=== PATIENT | male | born 1970 | race Caucasian/White ===

== ENCOUNTER 2019-12-25 07:32 | Outpatient (RCR) | payer MEDICARE, SELFPAY | END 2020-01-07 23:59 | disposition home or self-care (01) | LOC: ANHWOC 07:32 | PROVIDERS: PCP Family Medicine; Visit Provider Family Medicine | DX: E11.622 Type 2 diabetes mellitus with other skin ulcer (principal); L97.909 Non-pressure chronic ulcer of unspecified part of unspecified lower leg with unspecified severity; E11.65 Type 2 diabetes mellitus with hyperglycemia; E66.01 Morbid (severe) obesity due to excess calories | CPT/HCPCS: 99212; A9270; G0463 ==

== ENCOUNTER 2020-02-05 07:21 | Outpatient (RCR) | payer MEDICARE, SELFPAY | END 2020-04-01 08:01 | disposition home or self-care (01) | LOC: ANHWOC 07:21 | PROVIDERS: PCP Family Medicine; Visit Provider Family Medicine | DX: E11.65 Type 2 diabetes mellitus with hyperglycemia (principal); E11.622 Type 2 diabetes mellitus with other skin ulcer; L97.909 Non-pressure chronic ulcer of unspecified part of unspecified lower leg with unspecified severity; E66.01 Morbid (severe) obesity due to excess calories | CPT/HCPCS: 99211; 99212; G0463 ==

== ENCOUNTER 2024-01-25 07:53 | Outpatient (CLI) | payer MEDICARE, SELFPAY ==
[2024-01-25 18:46] LABS: LDL Cholesterol Direct 69 mg/dL
[2024-01-25 18:48] LABS: Alanine Aminotransferase 21 U/L (6-50); Albumin Level 4.1 g/dL (3.5-5.1); Alkaline Phosphatase 62 U/L (38-126); Anion Gap 5 mmol/L (8-16); Aspartate Amino Transferase 42 U/L (17-59); Bilirubin,Total 0.9 mg/dL (0.2-1.3); Blood Urea Nitrogen 15 mg/dL (9-20); Calcium 9.2 mg/dL (8.4-10.2); Carbon Dioxide 28 mmol/L (22-30); Chloride 101 mmol/L (98-107); Cholesterol 101 mg/dL (0-200); Estimated Glomerular Filt Rate > 60; Glucose 110 mg/dL (65-110); HDL Direct 19 mg/dL; Potassium 4.4 mmol/L (3.4-5.0); Sodium 134 mmol/L (137-145); Triglycerides 160 mg/dL (<150); Uric Acid 5.5 mg/dL (3.5-8.5)
[2024-01-25 20:47] LABS: Hemoglobin A1C 6.5 % (<5.7)
== END 2024-01-25 07:54 | disposition home or self-care (01) ==
PROVIDERS: PCP Family Medicine; Visit Provider Family Medicine
DX: M10.9 Gout, unspecified (principal); E11.9 Type 2 diabetes mellitus without complications
CPT/HCPCS: 36415; 80053; 80061; 83036; 84550

== ENCOUNTER 2024-08-04 07:58 | Outpatient (CLI) | payer MEDICARE, SELFPAY ==
[2024-08-04 14:53] LABS: Alanine Aminotransferase 24 U/L (6-50); Albumin Level 4.2 g/dL (3.5-5.1); Alkaline Phosphatase 65 U/L (38-126); Anion Gap 13 mmol/L (4-12); Aspartate Amino Transferase 40 U/L (17-59); Bilirubin,Total 0.8 mg/dL (0.2-1.3); Blood Urea Nitrogen 14 mg/dL (9-20); Carbon Dioxide 25 mmol/L (22-30); Chloride 98 mmol/L (98-107); Cholesterol 112 mg/dL (0-200); Estimated Glomerular Filt Rate > 60; Glucose 156 mg/dL (65-110); HDL Direct 21 mg/dL; Potassium 4.2 mmol/L (3.4-5.0); Sodium 136 mmol/L (137-145); Triglycerides 169 mg/dL (<150); Uric Acid 5.3 mg/dL (3.5-8.5)
[2024-08-04 15:04] LABS: LDL Cholesterol Direct 68 mg/dL
[2024-08-04 15:09] LABS: Microalbumin Urine Random 6.7 mg/L (0-16.7)
[2024-08-04 15:20] LABS: Creatinine Urine 100.7 mg/dL; MALB Creatinine Ratio 6.7 mg/g (0-30)
[2024-08-04 15:34] LABS: Hemoglobin A1C 7.6 % (<5.7)
== END 2024-08-04 07:59 | disposition home or self-care (01) ==
PROVIDERS: PCP Family Medicine; Visit Provider Family Medicine
DX: E11.9 Type 2 diabetes mellitus without complications (principal); M10.9 Gout, unspecified
CPT/HCPCS: 36415; 80053; 80061; 82043; 83036; 84550

== ENCOUNTER 2024-09-03 08:14 | Emergency (ER) | payer MEDICARE, SELFPAY ==
[2024-09-03 08:38] VITALS: BP 147/94; PULSE 116; RESP 16; TEMP 36.2; O2SAT 97
--- NOTE | 2024-09-03 08:39 | PC.NURSE ---
PATIENT DECLINED TO BE WEIGHED AND DIDNT KNOW HIS WEIGHT
--- NOTE | 2024-09-03 08:47 | ED.GENADULT ---
HPI - General Adult General Chief complaint: Ear Stated complaint: EARACHE/SWOLLEN GLANDS/SORE THROAT Source: patient Mode of arrival: ambulatory Limitations: no limitations History of Present Illness HPI narrative: Patient presents for evaluation of sick symptoms for the past 4 days. Symptoms include sinus congestion, postnasal drainage, sore throat, left-sided otalgia, cough, PHELPS and hot flashes. No objective fever, chills, nausea, or diarrhea. No recent sick contacts. He has been taking sudafed for his symptoms. He does not smoke. Related Data Allergies Allergy/AdvReac Type Severity Reaction Status Date / Time adhesive tape Allergy Mild Hives / Verified 09/03/24 08:26 Red Face bee venom protein (honey bee) Allergy Unknown Unknown Verified 09/03/24 08:26 Review of Systems Review of Systems: CONSTITUTIONAL: Reports hot flashes. Denies fever, chills, or sweats. EYES: Denies visual changes, redness, or discharge. ENT:Reports sinus congestion, postnasal drainage, sore throat and left sided otalgia. CARDIOVASCULAR: Denies chest pain, palpitations, or edema. RESPIRATORY: Reports cough. Denies dyspnea. GASTROINTESTINAL: Denies abdominal pain, nausea, vomiting, or diarrhea. GENITOURINARY: Denies dysuria or hematuria. SKIN: Denies rash or itching. MUSCULOSKELETAL: Denies back pain, joint pain, or myalgia. NEUROLOGIC: Denies headache, numbness, dizziness, or weakness. PSYCHIATRIC: Denies anxiety or depression. [facility] Past Medical History Medical History Diabetes Hypertension Surgical History Surgical History History of appendectomy Family History Family History Father Family history of obesity Family history of liver disease Mother Family history of obesity Patient's mother is Social History Social History Social History: Caffeine-coffee daily Smoking status: Never smoker Alcohol intake: current Alcohol use details: rarely, less than 3 drinks per year Lack of Transportation: No Lack of Food: Never True Current Housing: I Have Housing Concerned About Future Housing: No Difficulty Paying Gas/Electric Bills: No Difficulty Paying for Meds: No Currently Unemployed: No Education: Trade/Vocational Certificate Difficulty w/ Childcare or Family Care: No Exam Narrative: GENERAL: Well-appearing, well-nourished, and in no acute distress. HEAD: Normocephalic, atraumatic. EYES: PERRLA and EOMI. ENT: Nares clear, no rhinorrhea or epistaxis. Mucous membranes moist. Oropharynx without tonsillar hypertrophy exudate or other lesions. There is posterior pharyngeal erythema. Uvula is midline. Bilateral TMs pearly aaron nonbulging NECK: Supple. No adenopathy or masses. No carotid bruits or JVD CHEST: Clear to auscultation. No respiratory distress. No wheezes rales or rhonchi HEART: Regular rate and rhythm. No murmur heard. Normal peripheral pulses. ABDOMEN: Soft, nontender, nondistended, normal active bowel sounds. EXTREMITIES: Normal range of motion. No edema. SKIN: Warm, dry, no rash. NEURO: No focal deficits. Alert and oriented x3. PSYCH: Normal mood and affect. Course Course Emergency Course: This is a 54-year-old male who presented for evaluation of sick symptoms. Strep, COVID, flu were all negative. Patient would like to be treated with antibiotics in the event that his rapid strep was a false negative. Increase hydration. Pgzj-oou-wyergsc agents for symptom management. Follow up with primary provider. Go to the ER for worsening symptoms. Patient in agreement with plan of care. Level of Care: Express Care Visit Vital Signs Vital signs: Vital Signs Temperature 36.2 C L 09/03/24 08:38 Pulse Rat
[2024-09-03 08:53] LABS: EDCOVIDSCREEN Negative (Negative); EDINFLUASCREEN Negative (Negative); EDINFLUBSCREEN Negative (Negative); EDSTREPNEGPOS1 Negative (Negative)
== END 2024-09-03 09:05 | disposition home or self-care (01) ==
PROVIDERS: Emergency Provider Nurse Practitioner; PCP Family Medicine
DX: J02.9 Acute pharyngitis, unspecified (principal); Z20.822 Contact with and (suspected) exposure to COVID-19; E11.9 Type 2 diabetes mellitus without complications; I10 Essential (primary) hypertension
CPT/HCPCS: 87081; 87426; 87804; 87880; 99213; G0463

== ENCOUNTER 2025-02-16 07:53 | Outpatient (CLI) | payer MEDICARE, SELFPAY ==
--- OUTSIDE RECORDS SUMMARY | 2025-02-16 08:03 | XMS_ITS | Continuity of Care Document ---
Author Organization [facility] Address [address] [place] [address] Phone Care Team Providers Care Natural Sciences Department Chair Name Role Phone Ga Mondragon MD Unavailable Unavailable Procedures Procedure Date Medical Testimony Deposition Work/medical disability examination MAGALI X-ray exam of shoulder, complete 2008 Prolonged serv, w/o contact, 1st hr Advance Directives Directive Yes / No Effective Date File Name No Information Encounters Encounter Description Practice Location Reason(s) For Visit Diagnoses Date Provider Providers Copied on Encounter [facility], [address] [place] [address], [address] [place] [address], [phone] [facility] No Information 9 Giancarlo Koroma. [address] [place] [address], [id number] , [place]. tel: [phone] Work/medical disability examination MAGALI [facility], [address] [place] [address], [id number], [place] [phone] [facility] No Information 3200 9 Giancarlo Koroma. [address] [place] [address], [id number] , [place]. tel: [phone] Family History Family Member Type Diagnosis Age [...]
--- OUTSIDE RECORDS SUMMARY | 2025-02-16 08:03 | XMS_ITS | Clinical Summary ---
Author Organization [facility] Address [address] [place] [address] Care Team Providers Care Huc Ob Name Role Phone Ga Blanco MD Primary Care Provider [phone] Ga Blanco MD Unavailable [phone] Allergies Active Allergy Reactions Criticality Noted Date Comments Adhesive Tape-Silicones Hives,Rash Medium 12/04/2019 Medications allopurinol (ZYLOPRIM) 300 mg tablet TK 1 T PO QHS 11/21/2019 Active ONETOUCH ULTRA BLUE TEST STRIP strip U UTD TID 09/01/2019 Active cyclobenzaprine (FLEXERIL) 10 mg tablet TK 1 T PO TID PRF MUSCLE SPASM 11/26/2019 Active glipiZIDE XL (GLUCOTROL XL) 5 mg 24 hr tablet TK 1 T PO QD WITH MICK 11/21/2019 Active hydrALAZINE (APRESOLINE) 50 mg tablet TK 1 T PO ONCE D 10/15/2019 Active hydroCHLOROthiaz elza (HYDRODIURIL) 25 mg tablet TK 1 T PO ONCE D 09/14/2019 Active ibuprofen (ADVIL,MOTRIN) 800 mg tablet TK 1 T PO TID PRN 10/19/2019 Active ketoconazole (NIZORAL) 2 % cream JHONY EXT AA BID 09/25/2019 Active lisinopril (PRINIVIL,ZESTRI L) 10 mg tablet TK 1 T PO QD 09/14/2019 Active metFORMIN XR (GLUCOPHAGE XR) 500 mg 24 hr tablet TK 2 TS PO BID 11/12/2019 Active metoprolol XL (TOPROL-XL) 100 mg 24 hr tablet TK 1 T PO D 10/19/2019 A ctive Jardiance 25 mg tablet 04/30/2024 Active Ozempic 1 mg/dose (4 mg/3 mL) pen injector injection 04/15/2024 Active atorvastatin (LIPITOR) 20 mg tablet 04/15/2024 Active OneTouch Delica Plus Lancet 33 gauge misc 05/15/2024 Active Active Problems Problem Noted Date Diagnosed Date BMI 70 and over, adult 06/19/2024 Traumatic ulcer, limited to breakdown of skin Hypertension 12/05/2019 Immunizations Immunization Administration Dates Next Due Influenza, Quadrivalent, Rec ombinant, Egg Free, Preservative Free, Intramuscular 09/25/2019 Influenza, Quadrivalent, Spl it, Preservative Free, Intramuscular 08/31/2018 Surgical History Surgery Date Site/Laterality Comments APPENDECTOMY Medical History Medical History Date Comments Hypertension Diabetes (HCC) Gout Morbid obesity (HCC) Arthritis Hypercholesteremia Family History Medical History Relation Name Comments Liver disease Father Obesity Father Obesity Mother Relation Name Status Comments Father Mother Social History Tobacco Use Types Packs/Day Years Used Date Smoking Tobacco: Never Smokeless Tobacco: Never AUDIT-C Answer Date Recorded Q1: How often do you have a drink containing alc ohol? Monthly or less 06/19/2024 Q2: How many drinks containi ng alcohol do you have on a typical day when you are drinking? 1 or 2 06/19/2024 Q3: How often do you have si x or more drinks on one occasion? Never 06/19/2024 Sex and Gender Information Value Date Recorded Sex Assigned at Not on file Legal Sex Male 2:18 AM AVP Gender Identity Not on file Sexual Orientation Not on file Obstetrics History Last Filed Vital Signs Vital Sign Reading Time Taken Comments Blood Pressure 156/82 06/19/2024 11:12 AM CDT Pulse 89 06/19/2024 11:12 AM CDT Temperature 36.2 C (97.2 F) 12/05/2019 8:36 AM AVP Respiratory Rate - - Oxygen Saturation - - Inhaled Oxygen Concentration - - Weight 215.5 kg (475 lb) 06/19/2024 11:12 AM CDT Height 175.3 cm (5' 9 ) 06/19/2024 11:12 AM CDT Body Mass Index 70.15 06/19/2024 11:12 AM CDT Plan of Treatment Health Maintenance Due Date Last Done Comments Albumin Creatinine Ratio, Urine 1969 Colon Cancer Screening-Colonoscopy 1969 Depression Screening 1969 Hemoglobin A1C 1969 Hepatitis C Screening 1969 Prostate Cancer Screening-PSA 1969 eGFR 1969 Dilated Eye Exam 1969 Foot Exam 1969 Lipid Panel 1969 DTaP/Tdap/Td Vaccine (1 - Tdap) 1980 Hepatitis B Screening 1987 Regular Well Visit/Exam 18-64 1987 Pneumococcal vaccine <65 (1 of 2 - PCV) 1988 Zoster Vaccine (1 of 2) 2019 Influenza Vaccine (#1) 2024 09/25/2019, 2017 Insurance [facility] MDCR HMO REF [facility] MEDICARE ADVANTAGE Care Teams Huc Ob Relationship Specialty Start Date End Date Ga Blanco MD PCP - General 12/12/19 Ga Blanco MD Family Medicine 12/12/19
--- OUTSIDE RECORDS SUMMARY | 2025-02-16 08:03 | XMS_ITS | Referral Summary ---
Author Organization 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 Gender Identity Not on file Sexual Orientation Not on file Last Filed Vital Signs Vital Sign Reading Time Taken Comments Blood Pressure 156/82 06/19/2024 11:12 AM CDT Pulse 89 06/19/2024 11:12 AM CDT Temperature 36.2 C (97.2 F) 12/05/2019 8:36 AM AUTOMATION MANAGER Respiratory Rate - - Oxygen Saturation - - Inhaled Oxygen Concentration - - Weight 215.5 kg (475 lb) 06/19/2024 11:12 AM CDT Height 175.3 cm (5' 9 ) 06/19/2024 11:12 AM CDT Body Mass Index 70.15 06/19/2024 11:12 AM CDT Plan of Treatment Not on file Insurance [place] [id number] [facility] MEDICARE ADVANTAGE [place] [id number] Care Teams Card Game Operator Relationship Specialty Start Date End Date Ga Blanco MD PCP - General 12/12/19 Ga Blanco MD Family Medicine 12/12/19
--- OUTSIDE RECORDS SUMMARY | 2025-02-16 08:03 | XMS_ITS | Clinical Summary ---
Author Organization [facility] Address [address] [place] [address] Care Team Providers Care Turret Punch Operator Name Role Phone Unavailable Primary Care Provider Unavailabl e Source Comments [facility],non-owned Affiliates and Associated Physician Practices is amultiple site organization consisting of ambulatory clinics and hospital sitesin [place], [place], [place] and [place]. This disclosure is being madepursuant to the Care Everywhere program and may not contain all information available regarding this patient. Last updated 18.[facility] [employer] Social History Tobacco Use Types Packs/Day Years Used Date Smoking Tobacco: Never Assessed Sex and Gender Information Value Date Recorded Sex Assigned at Not on file Gender Identity Not on file Sexual Orientation Not on file Plan of Treatment Health Maintenance Due Date Last Done Comments COLOGUARD (AGES 45-75) - COL ON CA SCREENING 1969 COLON MONITORING 1969 COLONOSCOPY - COLON CA SCREENING 1969 CT COLONOGRAPHY - COLON CA SCREENING 1969 Colorectal Cancer Screening 1969 FIT - COLON CA SCREENING 1969 FLEX SIG - COLON CA SCREENING 1969 LIPID TESTING 1969 HIV SCREENING 1984 HEPATITIS C SCREENING 08/15/1987 DTAP/TDAP/TD VACCINES (1 - Tdap) 1988 HEPATITIS B VACCINE (1 of 3 - 19+ 3-dose series) 1988 PNEUMOCOCCAL VACCINE 50+ (1 of 1 - PCV) 2019 ZOSTER VACCINE (1 of 2) 2019 COVID-19 VACCINE ( - 2023-2 5 season) 2024 INFLUENZA VACCINE (#1) 2024 DEPRESSION SCREENING 11/29/2024 HIB VACCINE Aged Out No longer eligi ble based on patient's age to complete this topic HPV VACCINE Aged Out No longer eligi ble based on patient's age to complete this topic MENINGOCOCCAL (Group B) VACC INE SHARED DECISION-MAKING Aged Out No longer eligibl e based on patient's age to complete this topic MENINGOCOCCAL GROUPS A/C/Y/W VACCINE Aged Out No longer eligible b ased on patient's age to complete this topic PNEUMOCOCCAL VACCINE Aged Out No long er eligible based on patient's age to complete this topic
--- OUTSIDE RECORDS SUMMARY | 2025-02-16 08:03 | XMS_ITS | Continuity of Care Document ---
Author Organization [employer] Address [address] [place] [address] Phone Care Team Providers Care Search Engine Optimization Analyst Name Role Phone Conversion MD, Doctor Unavailable [...] Diagnoses Date Provider Providers Copied on Encounter [employer], [address], [place], [place], [address] , [place] tel: [phone] Conversion Department No Information 1 Conversion Doctor. [address], [place], [address], [place]. [employer], [address], [place], [place], [address] , tel: [phone] [place] BENIGN [facility]YPERTENSION [address], [address], [place], [place], [address], [place]. tel:[phone] [employer], [address], [place], [place], [address] , tel:[phone] [place] DIARRHEAMALAISE AND FATIGUE NECIRRITABLE BOWEL SYNDROMEESOPHAGEA L REFLUXABDMNAL PAIN GENERALIZED May-200 8 [facility] [address]. [address], [address], [place], [place], [address], . tel: [phone] [facility], [address], [place], [place], [address] , [place] tel: [place] ACUTE SINUSITIS NOS Nov-0 9200 8 [facility] [address], [address], [place], [place], [address], [place]. tel: [phone] [facility], [address], [place], [place], [address] , tel:[phone] [place] JOINT PAIN-L/LEGLOC PRIM OSTEOART-L/LEG Aug- 8200 7 [facility] [address], [address], [place], [place], [address], [place]. tel: [phone] [facility], [address], [place], [place], [address] , [place] tel:[phone] [place] MORBID OBESITY Sep-2 6-200 7 [employer] [address], [address], [place], [place], [address], [place]. tel: [phone] [facility], [address], [place], [place], [address] , [place] tel:[phone] [place] SPRAIN OF KNEE & LEG NOS Sep-2 6-200 7 [facility] [address], [address], [place], [place], [address], [place]. tel: [phone] [facility], [address], [place], [place], [address] , [place] tel: [phone] [place] EXT HEMORRHOID W/O COMPLINT HEMORRHOID W/O COMPLHEMRRHOID NOS W COMP NEC Sep-0 5-200 7 [facility] [address], [address], [place], [place], [address], [place]. tel:[phone] [employer], [address], [place], [place], [address] , tel: [phone] Conversion Department ABDMNAL PAIN RT LWR QUAD 7 [facility] [address], [address], [place], [place], [address], . tel:[phone] [facility] [employer], [address], [place], [place], [address] , [place] tel: [phone] [place] INSOMNIA NOSSCIATICA 7 [facility] [address], [address], [place], [place], [address], . tel:[phone] [facility] [employer], [address], [place], [place], [address] , tel:[phone] [place] ABNORMAL GLUCOSE NECHYPERLIPIDEMIA NEC/NOSLUMBAGO 7 [facility] [address], [address], [place], [place], [address], . tel:[phone] [employer], [address], [place], [place], [address] , tel:[phone] [employer] VIRAL ENTERITIS NOS 6 [facility] [address], [address], [place], [place], [address], . tel:[phone] [employer], [address], [place], [place], [address] , tel:[phone] [employer] DYSMETABOLIC SYNDROME XANAPHYLACTIC SHOCKALLERGIC RHINITIS NOS 6 [facility], [address], [place], [place], [address], . tel:[phone] [facility], [address], [place], [place], [address] , [place] tel:[phone] [place] PROPHYLACTIC MEASURE NEC 5 Conversion Doctor. [address], [place], [address], [place]. [employer], [address], [place], [place], [address] , tel: [phone] [employer] ACUTE URI NOSCHR CONJUNCTIVITIS NOS 5 [address], [address], [place], [address], . tel:[phone] [employer], [address], [place], [place], [address] , tel: [phone] [employer] AC SUPP OTITIS MEDIA NOS 5 Ricci Marie. [address], [address], [place], [address], . tel:[phone] [employer], [address], [place], [place], [address] , tel: [phone] [place] No Information 5 Ricci Marie. [address], [address], [place], [place], [address], . tel:[phone] Family History Family Member Type Diagnosis Age At Onset No Information Payers Payer name Insurance type Covered alliance party ID Authoriza tion(s) No Information Social [...]
--- OUTSIDE RECORDS SUMMARY | 2025-02-16 08:03 | XMS_ITS | Continuity of Care Document ---
Author Organization [facility] Address [address] [place] [address] Phone Care Team Providers Care Roll Line Operator Name Role Phone Administrative, Provider Unavailable Unavail able Procedures Procedure Date Xray Copy Xray Copy Xray Copy Xray Copy Medical Record Copy Medical Record Copy Per Page Affidavit Office/outpatient visit,new, [facility] 2007 X-ray exam of neck spine, 4+ views X-ray exam of shoulder, complete 2007 X-ray exam of knee, 3 views X-ray exam of skull, complete 8 Advance Directives Directive Yes / No Effective Date File Name No Information Encounters Encounter Description Practice Location Reason(s) For Visit Diagnoses Date Provider Providers Copied on Encounter [facility], [address], [id number], tel:[phone] [facility] No Information 9 Administrative Provider. [address] [facility], [address], [address], [place]. tel:[phone] [facility], [address], [address], [place] tel:[phone] [facility] No Information 8200 8 Administrative Provider. [address] [place] [address], [address], [address], [place]. tel:[phone] Office/outpa tient visit,[facility], [facility], [address], [place], [place], [address], tel:[phone] [facility] No Information 8 Justine Leon. [address], [place], [place], [address], [place]. tel:[phone] Family History Family Member Type Diagnosis Age At Onset No Information Payers Payer name Insurance type Covered republican ID Authoriza tion(s) No Information Social History [...]
[2025-02-16 13:58] LABS: Alanine Aminotransferase 26 U/L (6-50); Albumin Level 4.4 g/dL (3.5-5.1); Alkaline Phosphatase 86 U/L (38-126); Anion Gap 14 mmol/L (4-12); Aspartate Amino Transferase 44 U/L (17-59); Bilirubin,Total 0.9 mg/dL (0.2-1.3); Blood Urea Nitrogen 16 mg/dL (9-20); Calcium 9.3 mg/dL (8.4-10.2); Carbon Dioxide 25 mmol/L (22-30); Chloride 98 mmol/L (98-107); Cholesterol 113 mg/dL (0-200); Estimated Glomerular Filt Rate > 60; Glucose 134 mg/dL (65-110); HDL Direct 21 mg/dL; Potassium 4.2 mmol/L (3.4-5.0); Sodium 137 mmol/L (137-145); Triglycerides 217 mg/dL (<150)
[2025-02-16 14:08] LABS: LDL Cholesterol Direct 52 mg/dL
[2025-02-16 14:19] LABS: Creatinine Urine 48.9 mg/dL
[2025-02-16 14:33] LABS: MALB Creatinine Ratio < 12.3 mg/g (0-30); Microalbumin Urine Random < 6.0 mg/L (0-16.7)
[2025-02-16 14:37] LABS: Hemoglobin A1C 7.3 % (<5.7)
== END 2025-02-16 07:54 | disposition home or self-care (01) ==
PROVIDERS: PCP Family Medicine; Visit Provider Family Medicine
DX: E11.9 Type 2 diabetes mellitus without complications (principal)
CPT/HCPCS: 36415; 80053; 80061; 82043; 83036

== ENCOUNTER 2025-08-24 08:09 | Outpatient (CLI) | payer MEDICARE, SELFPAY ==
--- OUTSIDE RECORDS SUMMARY | 2009-01-07 19:00 | XMS_ITS | Continuity of Care Document ---
Author Organization [facility] Address [address] [place] [address] Phone Care Team Providers Care Electrical And Radio Mechanic Name Role Phone Administrative, Provider Unavailable Unavail able Procedures Procedure Date Xray Copy Xray Copy Xray Copy Xray Copy Medical Record Copy Medical Record Copy Per Page Affidavit Office/outpatient visit,[facility], [facility] 2007 X-ray exam of neck spine, 4+ views X-ray exam of shoulder, complete 2007 X-ray exam of knee, 3 views X-ray exam of skull, complete 8 Advance Directives Directive Yes / No Effective Date File Name No Information Encounters Encounter Description Practice Location Reason(s) For Visit Diagnoses Date Provider Providers Copied on Encounter [facility], [address], [id number], tel:[phone] [facility] No Information 9 Administrative Provider. 1050 [facility], [address], [id number], [place]. tel:[phone] [facility], [address], [id number], [place] tel:[phone] [facility] No Information 8 Administrative Provider. [address] [place] [address], [address], [id number], [place]. tel:[phone] Office/outpa tient visit,new, [facility], [address] [facility] [address], [place], [place], [id number], tel:[phone] [facility] No Information 8 Justine Leon. [address] [facility], [address], [place], [place], [address], [place]. tel:[phone] Family History Family Member Type Diagnosis Age At Onset No Information Payers Payer name Insurance type Covered democrat ID Authoriza tion(s) No Information Social History Type Description Quantity Date Captured Comments Sex Male Smoking Status No Information Chief Complaint And Reason For Visit No Information Reason For Referral Reason For Referral No Information History Of Present Illness Encounter Date Complaint History Of Prese nt Illness No Information Functional Status Date Functional Assessmen t No Information Instructions Date Instruction Additional Infor mation No Information Assessments Type Assessment Date No Information Patient Care Teams Name Effective Dates (start - stop) Status Members No Information
--- OUTSIDE RECORDS SUMMARY | 2009-10-25 19:00 | XMS_ITS | Continuity of Care Document ---
Author Organization [facility] Address [address] [place] [address] Phone Care Team Providers Care Manager Administrative Services Name Role Phone Ga Mondragon MD, MD Unavailable Unavaila ble Procedures Procedure Date Medical Testimony Deposition Work/medical disability examination MAGALI X-ray exam of shoulder, complete 2008 Prolonged serv, w/o contact, 1st hr Advance Directives Directive Yes / No Effective Date File Name No Information Encounters Encounter Description Practice Location Reason(s) For Visit Diagnoses Date Provider Providers Copied on Encounter [facility], [address] [place] [address], [id number], [phone] [facility] No Information 9 Giancarlo Koroma. 1050 [facility] [address], [place], [id number] , [place]. tel: [phone] Work/medical disability examination MAGALI [facility], [address] [place] [address], [place], [id number], tel:[phone] [facility] No Information 9 Giancarlo Koroma. 1050 [facility] [address], [place], [place], [id number] , [place]. tel: [phone] Family History Family Member Type Diagnosis Age At Onset No Information Payers Payer name Insurance type Covered constitution party ID Authoriza tion(s) No Information Social History [...]
--- OUTSIDE RECORDS SUMMARY | 2011-04-03 19:00 | XMS_ITS | Continuity of Care Document ---
Author Organization [facility] Address [address] [place] [address] Phone Care Team Providers Care Dump Operator Name Role Phone Conversion MD, Doctor Unavailable Unavailabl e Allergies, Adverse Reactions, Alerts Substance Reaction Status Criticality No Known Drug Allergies Other Active No I nformation Medications Medication Instructions Dosage Effective Dates (start - stop) Status Comments PANTOPRAZOLE SODIUM 40MG TABS 1 QD-daily - Active CYCLOBENZAPRINE 10 MG TABLET 1 TID - Active IBUPROFEN 800MG TABS 1 TID - Activ e ATENOLOL 100 MG TABLET 1 QD-daily - Ac tive HYDRALAZINE 50 MG TABLET 1 TID - A ctive HYDROCHLOROTHIAZIDE 25 MG TB 1 QAM - Active EPIPEN 0.3 MG AUTO-INJECTOR 1 DIRECTE 08 - Active NAPROSYN 500MG TABS 1 BID - Active ANUSOL-HC 25MG SUPPOS 1 BID - Acti ve DIPHENOXYLATE-ATROPINE 2.5-.02 2 QID - No Longer Active RANITIDINE HCL 300MG TABS 1 QD-daily Ju - No Longer Active BACTRIM DS 800-160MG TABS 1 BID Ja - No Longer Active NORTRIPTYLINE HCL 25MG CAPS 1 QHS - No Longer Active CYCLOBENZAPRINE 10 MG TABLET 1 TID - No Longer Active HYDROCODONE-ACETAMINOPHEN 5MG- 1 Q 6HR - No Longer Active HYDROCHLOROTHIAZIDE 25 MG TB 1 QAM - No Longer Active HYDRALAZINE 50 MG TABLET 1 TID Feb - No Longer Active ATENOLOL 100 MG TABLET 1 QD-daily - No Longer Active HYDROCHLOROTHIAZIDE 25MG TABS 1 QAM - No Longer Active EPIPEN 0.3MG/0.3 ML 1 DIRECTE No Longer Active CYCLOBENZAPRINE HCL 10MG TABS 1 TID - No Longer Active ATENOLOL 100 MG TABLET 1 QD - No Longer Active HYDRALAZINE 50 MG TABLET 1 TID Apr - No Longer Active CELEBREX 200MG CAPS 1 QD No Longer Active HYDRALAZINE HCL 50MG TABS 1 TID - No Longer Active ATENOLOL 100MG TABS 1 QD No Longer Active AMOXICILLIN 500MG CAPS 1 Q 8HR - No Longer Active Advance Directives Directive Yes / No Effective Date File Name No Information Encounters Encounter Description Practice Location Reason(s) For Visit Diagnoses Date Provider Providers Copied on Encounter [facility], [address], [place], [place], [id number] , [place] tel: [phone] Conversion Department No Information 1 Conversion Doctor. [address], [place], [address], [place]. [facility], [address], [place], [place], [address] , tel: [phone] [place] BENIGN HYPERTENSION [address]. [address], [address], [place], [place], [address], [place]. tel:[phone] [facility], [address], [place], [place], [address] , tel:[phone] [facility] DIARRHEAMALAISE AND FATIGUE NECIRRITABLE BOWEL SYNDROMEESOPHAGEA L REFLUXABDMNAL PAIN GENERALIZED May-200 8 [facility] [address]. [address], [address], [place], [place], [address], . tel: [phone] [facility], [address], [place], [place], [address] , [place] tel: [place] ACUTE SINUSITIS NOS Nov-0 9200 8 [facility] [address]. [address], [address], [place], [place], [address], [place]. tel: [phone] [facility], [address], [place], [place], [address] , tel:[phone] [place] JOINT PAIN-L/LEGLOC PRIM OSTEOART-L/LEG Aug- 8200 7 [facility] [address]. [address], [address], [place], [place], [address], [place]. tel: [phone] [facility], [address], [place], [place], [address] , [place] tel:[phone] [facility] MORBID OBESITY Sep-2 6-200 7 [facility] Scott. [address], [address], [place], [place], [address], [place]. tel: [phone] [facility], [address], [place], [place], [address] , [place] tel:[phone] [place] SPRAIN OF KNEE & LEG NOS Sep-2 6-200 7 [facility] [address]. [address], [address], [place], [place], [address], [place]. tel: [phone] [facility], [address], [place], [place], [address] , [place] tel: [phone] [facility] EXT HEMORRHOID W/O COMPLINT HEMORRHOID W/O COMPLHEMRRHOID NOS W COMP NEC Sep-0 5-200 7 [facility] [address]. [address], [address], [place], [place], [address], [place]. tel:[phone] [facility], [address], [place], [place], [address] , tel: [phone] Conversion Department ABDMNAL PAIN RT LWR QUAD 7 [facility] [address], [address], [place], [place], [address], . tel:[phone] [facility] [employer], [address], [place], [place], [address] , [place] tel: [phone] [place] INSOMNIA NOSSCIATICA 7 [facility] [address], [address], [place], [place], [address], . tel:[phone] [facility] [employer], [address], [place], [place], [address] , tel:[phone] [place] ABNORMAL GLUCOSE NECHYPERLIPIDEMIA NEC/NOSLUMBAGO 7 [facility] [address], [address], [place], [place], [address], . tel:[phone] [facility], [address], [place], [place], [address] , tel:[phone] [employer] VIRAL ENTERITIS NOS 6 [facility], [address], [place], [place], [address], . tel:[phone] [facility], [address], [place], [place], [address] , tel:[phone] [employer] DYSMETABOLIC SYNDROME XANAPHYLACTIC SHOCKALLERGIC RHINITIS NOS 6 [facility], [address], [place], [place], [address], . tel:[phone] [facility], [address], [place], [place], [address] , [place] tel:[phone] [place] PROPHYLACTIC MEASURE NEC 5 Conversion Doctor. [address], [place], [address], [place]. [facility], [address], [place], [place], [address] , tel: [phone] [employer] ACUTE URI NOSCHR CONJUNCTIVITIS NOS 5 [address]. [address], [address], [place], [address], . tel:[phone] [facility], [address], [place], [place], [address] , tel: [phone] [employer] AC SUPP OTITIS MEDIA NOS 5 Ricci Marie. [address], [address], [place], [address], . tel:[phone] [facility], [address], [place], [place], [address] , tel: [phone] [facility] No Information 5 Ricci Marie. [address], [address], [place], [place], [address], . tel:[phone] Family History Family Member Type Diagnosis Age At Onset No Information Payers Payer name Insurance type Covered libertarian ID Authoriza tion(s) No Information Social History Type Description Quantity Date Captured Comments Sex Male Smoking Status No Information Chief Complaint And Reason For Visit No Information Reason For Referral Reason For Referral No Information History Of Present Illness Encounter Date Complaint History Of Prese nt Illness No Information Functional Status Date Functional Assessmen t No Information Medications Administered Medication Instructions Dosage Effective Dates (start - stop) Status Comments RANITIDINE HCL 300MG TABS 1 QD-daily - No Longer Active Instructions Date Instruction Additional Infor mation No Information Assessments Type Assessment Date No Information Patient Care Teams Name Effective Dates (start - stop) Status Members No Information
--- OUTSIDE RECORDS SUMMARY | 2025-08-24 08:14 | XMS_ITS | Clinical Summary ---
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 Gender Identity Not on file Sexual Orientation Not on file Obstetrics History Last Filed Vital Signs Vital Sign Reading Time Taken Comments Blood Pressure 156/82 06/19/2024 11:12 AM CDT Pulse 89 06/19/2024 11:12 AM CDT Temperature 36.2 C (97.2 F) 12/05/2019 8:36 AM COAL PIPELINE OPERATOR Respiratory Rate - - Oxygen Saturation - - Inhaled Oxygen Concentration - - Weight 215.5 kg (475 lb) 06/19/2024 11:12 AM CDT Height 175.3 cm (5' 9) 06/19/2024 11:12 AM CDT Body Mass Index 70.15 06/19/2024 11:12 AM CDT Plan of Treatment Health Maintenance Due Date Last Done Comments Colon Cancer Screening-Colonoscopy 1969 Depression Screening 1969 Hepatitis C Screening 1969 Prostate Cancer Screening-PSA 1969 DTaP/Tdap/Td Vaccine (1 - Tdap) 1980 Hepatitis B Screening 1987 Regular Well Visit/Exam 18-64 1987 Zoster Vaccine (1 of 2) 2019 Influenza Vaccine (#1) 2025 9, 08/31/2018 Pneumococcal vaccine <65 Aged Out No longer eligible based on patient's age to complete this topic Insurance [facility] MEDICARE ADVANTAGE Care Teams Impregnating Machine Operator Relationship Specialty Start Date End Date Ga Blanco MD PCP - General 12/12/19 Ga Blanco MD Family Medicine 12/12/19
--- OUTSIDE RECORDS SUMMARY | 2025-08-24 08:14 | XMS_ITS | Clinical Summary ---
Author Organization [facility] Address [address] [place] [address] Care Team Providers Care Capping Machine Operator Name Role Phone Unavailable Primary Care Provider Unavailabl e Source Comments [facility],non-owned Affiliates and Associated Physician Practices is amultiple site organization consisting of ambulatory clinics and hospital sitesin [place], [place], [place] and [place]. This disclosure is being madepursuant to the Care Everywhere program and may not contain all information available regarding this patient. Last updated 18.[facility] [employer] Social History Tobacco Use Types Packs/Day Years Used Date Smoking Tobacco: Never Assessed Sex and Gender Information Value Date Recorded Sex Assigned at Not on file Legal Sex Male 4:26 AM LAYER OUT Gender Identity Not on file Sexual Orientation [...] 2019 ZOSTER VACCINE (1 of 2) 2019 DEPRESSION SCREENING 11/29/2024 COVID-19 VACCINE (1 - 2023-2 5 season) 2025 INFLUENZA VACCINE (#1) 2025 HIB VACCINE Aged Out No longer eligi [...]
[2025-08-24 18:24] LABS: Hemoglobin A1C 6.9 % (<5.7)
[2025-08-24 18:25] LABS: Alanine Aminotransferase 30 U/L (6-50); Albumin Level 3.9 g/dL (3.5-5.1); Alkaline Phosphatase 92 U/L (38-126); Anion Gap 9 mmol/L (4-12); Aspartate Amino Transferase 38 U/L (17-59); Bilirubin,Total 0.7 mg/dL (0.2-1.3); Blood Urea Nitrogen 14 mg/dL (9-20); Calcium 9.2 mg/dL (8.4-10.2); Carbon Dioxide 27 mmol/L (22-30); Chloride 99 mmol/L (98-107); Estimated Glomerular Filt Rate > 60; Glucose 143 mg/dL (65-110); Potassium 4.2 mmol/L (3.4-5.0); Sodium 135 mmol/L (137-145); Total Protein 7.4 g/dL (6.3-8.2)
[2025-08-26 09:07] LABS: Varicella-Zoster Ab, IgG Reactive (Non Reactive)
== END 2025-08-24 08:10 | disposition home or self-care (01) ==
LOC: ANHGOSHLAB 08:10
PROVIDERS: PCP Family Medicine; Visit Provider Family Medicine
DX: Z01.89 Encounter for other specified special examinations (principal); E11.9 Type 2 diabetes mellitus without complications
CPT/HCPCS: 36415; 80053; 83036; 86787; 86900; 86901